=== PATIENT | female | born 2000 | race Caucasian/White ===

== ENCOUNTER 2024-05-24 05:21 | Emergency (ER) | payer OTHER ==
[~2024-05-24] VITALS: Ht 162.6 cm; Wt 49.9 kg
[2024-05-24] MEDS ORDERED: ACETAMINOPHEN ES 500 MG TABLET ONE (06:41)
[2024-05-24] MEDS: ACETAMINOPHEN 325 MG TABLET PO ONE (06:44)
[2024-05-24] MEDS ORDERED: CYCL5TAB PO (08:04)
[2024-05-24] MEDS ORDERED: IBUP-1955 PO (08:04)
[2024-05-24 08:17] VITALS: BP 109/63; TEMP 98.2; O2SAT 97
== END 2024-05-24 08:18 | disposition home or self-care (01) ==
LOC: ER 05:37
DX: S16.1XXA Strain of muscle, fascia and tendon at neck level, initial encounter (principal); S09.8XXA Other specified injuries of head, initial encounter; Z60.2 Problems related to living alone; V43.62XA Car passenger injured in collision with other type car in traffic accident, initial encounter; Y93.89 Activity, other specified; Y92.488 Other paved roadways as the place of occurrence of the external cause; Y99.8 Other external cause status
CPT/HCPCS: 70450-TC; 72125-TC